=== PATIENT | male | born 1970 | race Caucasian/White ===

== ENCOUNTER 2019-01-30 22:09 | Emergency (ER) | payer OTHER, MEDICAID, SELFPAY ==
[2019-01-30 22:15] VITALS: BP 105/67; PULSE 85; RESP 15; TEMP 36.5; O2SAT 98; BMI 21.4
--- NOTE | 2019-01-30 23:46 | ED.SKABFB ---
HPI - Skin/Abscess/Foreign Bdy General Chief complaint: Skin/Abscess/Foreign Body Stated complaint: feeding tube is draining Time Seen by Provider: 01/30/19 23:20 Source: patient Mode of arrival: ambulatory Limitations: no limitations History of Present Illness HPI narrative: The patient is a 48-year-old male who presents with peg tube malfunction. He says it is leaking. He has it for laryngeal cancer. He is followed at [place]. He has been getting radiation and chemotherapy he is due for radiation again in 2 days. He noticed it leaking today. He has no redness around the area. He has been using it for feedings without any difficulty. He has been passing gas he had a bowel movement today. He has no nausea or vomiting. Related Data Allergies Allergy/AdvReac Type Severity Reaction Status Date / Time No Known Drug Allergies Allergy Verified 01/30/19 22:26 Review of Systems Review of Systems GENERAL: Denies chills,fever HEENT: Denies throat pain RESPIRATORY: Denies dyspnea, cough, wheezing CARDIOVASCULAR: Denies chest pain, palpitations GASTROINTESTINAL: See HPI MUSCULOSKELETAL: Denies extremity pain, injury SKIN: No rash, no laceration, no pruritus NEUROLOGIC: Denies weakness, dizziness, headache, numbness 8 point review of systems is negative except for those stated above and HPI [facility] Medical History Laryngeal cancer (Acute) Social History Smoking Status: Current every day smoker Social History Smoking Status: Current every day smoker Exam Initial Vital Signs Initial Vital Signs: Vital Signs Temperature 97.7 F 01/30/19 22:15 Pulse Rate 85 01/30/19 22:15 Respiratory Rate 15 01/30/19 22:15 Blood Pressure 105/67 01/30/19 22:15 Pulse Oximetry 98 01/30/19 22:15 GENERAL: Thin chronically ill HEENT: Head atraumatic,EOMI, pupils reactive, face symmetric, CARDIOVASCULAR: Regular rate and rhythm without murmurs, rubs or gallops. RESPIRATORY: Breath sounds equal bilaterally, no wheezes rales or rhonchi. ABDOMEN: Soft, nontender. Normoactive bowel sounds all 4 quadrants. No guarding or rebound. Peg tube noted in place there is no surrounding erythema. There is all white stuff when I push around the PEG tube it actually looks like tube feedings. He has some to feedings left in the tube. It is nontender there is no fluctuation. : No CVA tenderness EXTREMITIES: Normal range of motion, no clubbing or edema. Neurovascularly intact NEUROLOGICAL: Alert and oriented x4.Normal gait and speech. SKIN: Warm, dry, no laceration, no petechiae, no rashes or lesions. Course Vital Signs - 8 hr 01/30/19 22:15 01/31/19 01:03 Temperature 97.7 F 97.5 F L Pulse Rate 85 59 L Respiratory Rate 15 14 Blood Pressure 105/67 91/54 L Pulse Oximetry 98 100 MDM - Skin/Abscess/Foreign Bdy MDM Narrative Medical decision making narrative: His PEG site really does not appear infected there is no erythema there is no induration. It appears to be 2 feeding coming from the opening. The tube is adjusted and flushed. He had no further drainage from a is noted. It seems to be working his abdomen is soft he has no vomiting. This time I see no need for imaging. He is an appointment in 2 days for radiation. Discharge Plan Departure Patient Disposition: Home Clinical Impression: Complication of feeding tube Discharge Date/Time: 01/31/19 01:04 Interventions: ED Discharge Assessment Last Done: 01/31/19 01:03 Instructions: DI for Percutaneous Endoscopic Gastrostomy Activity Restrictions/Additional Instructions: *You have been diagnosed with feeding tube *What to do: At this time I think the drainage is feeding tube. We have fixed it for now. Please see your physicians in [place]. *Continue to take medications as directed *Follow up with your primary care provider in 2-3 days *Return to ER if you should have redness, increasing drainage, persistent vomiting, unable to use tube or any new, worsening or concerning symptoms
--- NOTE | 2019-01-31 00:53 | PC.NURSE ---
Gastric residuals checked ~ 60 mls. Residuals initially looked white like tube feed formula, then appeared bilious. The white residuals resembled the drainage coming from around tube insertion site on abd. Area cleansed gently with saline and patted dry.
[2019-01-31 01:03] VITALS: BP 91/54; PULSE 59; RESP 14; TEMP 36.4; O2SAT 100
== END 2019-01-31 01:04 | disposition home or self-care (01) ==
PROVIDERS: Emergency Provider Emergency Medicine
DX: K94.23 Gastrostomy malfunction (principal)
CPT/HCPCS: 99282